=== PATIENT | male | born 1970 | race Caucasian/White ===

== ENCOUNTER 2019-10-31 20:46 | Emergency (ER) | payer SELFPAY ==
[2019-10-31 21:01] VITALS: BP 148/86; PULSE 86; RESP 18; TEMP 36.8; O2SAT 96
--- NOTE | 2019-10-31 21:26 | ED.SKABFB ---
HPI - Skin/Abscess/Foreign Bdy General Chief complaint: Skin/Abscess/Foreign Body Stated complaint: Rash Source: patient Mode of arrival: ambulatory Limitations: no limitations History of Present Illness HPI narrative: Pianful, pruritic rash, onset 5 days ago, on forearms, legs and scrotum. Oozing blisters from forearm rash. Trimmed some bushes the day before onset. Being outside in the heat makes it worse. Related Data Home Medications Medication Instructions Recorded Confirmed hydrocodone-acetaminophen 1 tablet PO HS PRN 10/31/19 10/31/19 Allergies Allergy/AdvReac Type Severity Reaction Status Date / Time Penicillins Allergy Unknown Verified 10/31/19 21:06 Review of Systems Constitutional: Constitutional: Denies chills and Denies fever(s) Eyes: Comments: no rash, itching or swelling. ENT: Comments: no rash, itching or swelling. Respiratory: Respiratory: Denies wheezing Gastrointestinal: Gastrointestinal: Denies nausea and Denies vomiting PMFSH Past Medical History Medical History (Updated 10/31/19 @ 21:39 by Kenyon Perez MD) Hypertension Social History Social History (Updated 10/31/19 @ 21:39 by Kenyon Perez MD) Smoking status: Current every day smoker Exam Const: General: no acute distress HENMT: Other: no rash Eyes: Conjunctivae: conjunctivae normal Neck: Neck: normal visual inspection Chest: Chest palpation & inspection: normal inspection of the chest : Male General Exam: Yes normal external exam Skin: Other: large dark brown patch on right forearm with dried vesicles. Small scattered similar appearing patches and linear markings on arms and legs. Course Vital Signs Vital signs: Vital Signs Temperature 36.8 C 10/31/19 21:01 Pulse Rate 86 10/31/19 21:01 Respiratory Rate 18 10/31/19 21:01 Blood Pressure 148/86 H 10/31/19 21:01 Pulse Oximetry 96 10/31/19 21:01 Temperature 36.8 C 10/31/19 21:01 Pulse Rate 86 10/31/19 21:01 Respiratory Rate 18 10/31/19 21:01 Blood Pressure 148/86 H 10/31/19 21:01 Pulse Oximetry 96 10/31/19 21:01 MDM - Skin/Abscess/Foreign Bdy MDM Narrative Medical decision making narrative: Rhus dermatitis by appearance and possible exposure the previous day. Because of scrotal and extremity involvement will tx with oral steroids. Discharge Plan Discharge Clinical Impression: Poison li dermatitis Patient Disposition: Home, Self-Care Condition: Stable Instructions: Poison Li (ED) Additional Instructions: follow up with PCP in 2 weeks if not resolved. Prescriptions: New prednisone 20 mg tablet 20 mg PO DAILY Qty: 32 RF: 0 No Action hydrocodone-acetaminophen 10-325 mg Tablet 1 tablet PO HS PRN (Reason: Pain) RF: 0 Follow-up/Referrals: UNKNOWN,DOCTOR [Primary Care Provider] - Time of Disposition: 21:34 Discharge Date/Time: 10/31/19 21:39
[2019-10-31] MEDS: predniSONE 20 MG TABLET 60 MG PO (21:32)
== END 2019-10-31 21:39 | disposition home or self-care (01) ==
PROVIDERS: Emergency Provider Family Medicine
DX: L23.7 Allergic contact dermatitis due to plants, except food (principal)
CPT/HCPCS: 99283; J7512

== ENCOUNTER 2020-03-29 20:29 | Emergency (ER) | payer MEDICAID, SELFPAY ==
--- NOTE | ~2020-03-29 | XR_ITS ---
XR chest 2V DATE: 03/29/2020 21:02 INDICATION: Chest pain, tightness. Shortness of breath. TECHNIQUE: 2 views, PA and lateral projections COMPARISON: None FINDINGS: Normal heart size. No hilar or mediastinal enlargement. No pulmonary infiltrate or consolid ation, pleural effusion or pulmonary vascular congestion or pneumothorax. IMPRESSION: No active cardiopulmonary disease Reviewed, dictated and finalized at location A. DING ADMIN
[2020-03-29 20:30] VITALS: BP 149/80; PULSE 85; RESP 20; TEMP 36.6; O2SAT 98
--- NOTE | 2020-03-29 20:36 | ED.CHESTPAIN ---
HPI - Chest Pain General Source: patient and RN notes reviewed Mode of arrival: ambulatory Limitations: no limitations History of Present Illness HPI narrative: patient states he had severe crushing chest pain at 3:30 a.m.. He had associated shortness of breath diaphoresis no nausea or vomiting no radiation at that time. Says it lasted for approximately 10-15 minutes. It went away and he went back to sleep. This evening approximately 1 hour prior to arrival he had another moderate episode with radiation to left arm and neck. [place] very similar to this morning. He has no history of coronary artery disease. He does have a strong family history. He also has been losing weight approximately 50 lb last month, he has been having some blurry vision, he has also been having polydipsia and polyuria. Also has a strong family history of diabetes. Accu-Chek on arrival is 436 MD complaint: chest heaviness Onset (ago): hour(s) (17) Timing of current episode: episodic Prior episodes: No Onset: during rest and awoke with symptoms Pain location: substernal Pain radiation: left arm and neck Severity: severe Pain scale (0-10): 10 Quality: tightness Relieving factors: rest Exacerbating factors: nothing Associated symptoms: diaphoresis and dyspnea Treatment prior to arrival: none Risk Factors Coronary artery disease risk factors: smoking history, hypertension and family history of CAD before age 50 Related Data Home Medications Medication Instructions Recorded Confirmed hydrocodone-acetaminophen 1 tablet PO HS PRN 10/31/19 03/29/20 metoprolol succinate 50 mg PO DAILY 03/29/20 03/29/20 Allergies Allergy/AdvReac Type Severity Reaction Status Date / Time Penicillins Allergy Unknown Verified 10/31/19 21:06 ON LICENSE OF [facility] Past Medical History Medical History Hypertension Surgical History Surgical History (Updated 03/29/20 @ 20:52 by Tyler Ruiz MD) H/O lumbosacral spine surgery History of meniscectomy of left knee Social History Social History (Updated 03/29/20 @ 20:53 by Tyler Ruiz MD) Smoking packs per day: 1.5 Smoking cigarettes per day: 30.0 Smoking status: Current every day smoker Tobacco type: cigarettes Alcohol intake: former Alcohol use details: quit 20years ago Substance use: never Exam Const: General: healthy appearing, no acute distress and alert Nutritional Appearance: well nourished and obese centrally obese Orientation/consciousness: patient oriented x3 HENMT: Head: normal to inspection Face and sinus: normal facial exam Eyes: Conjunctivae: conjunctivae normal Pupils: Equal, round and reactive pupils present EOM: EOMs intact bilaterally Neck: Neck: normal visual inspection Resp: Effort & Inspection: normal respiratory effort Auscultation: clear to auscultation bilaterally Cardio: Rate: regular rate Rhythm: regular rhythm GI: GI Palp: Yes Soft to palpation and No Tenderness to palpation present (GI) Auscultation: normal bowel sounds Back/Spine/Pelvis: Cervical Spine: cervical ROM normal Thoracic/Lumbar Spine: thoraco-lumbar ROM normal Skin: General skin exam: normal color Rashes: no rashes Neuro: General: patient oriented x3, moves all extremities and no focal motor deficits Speech: normal speech Gait exam (Neuro): Normal gait present Extrem: General: normal to inspection and no clubbing, cyanosis or edema Psych: Appearance: grossly normal and well kempt Mental Status: mental status grossly normal Affect: normal affect Attitude: cooperative Thought content: Yes Normal thought content present Course Vital Signs Vital signs: Vital Signs Temperature 36.6 C 03/29/20 20:30 Pulse Rate 85 03/29/20 20:30 Respiratory Rate 20 03/29/20 20:30 Blood Pressure 149/80 H 03/29/20 20:30 Pulse Oximetry 98 03/29/20 20:30 Temperature 36.6 C 03/29/20 20:30 Pulse Rate 72 03/29/20 23:46 Respiratory Rate 18
--- NOTE | 2020-03-29 20:41 | ECG_ITS ---
Measurements Intervals [place] Rate: 77 P: 68 MN: 180 QRS: 34 QRSD: 98 T: 57 QT: 354 QTc: 403 Interpretive Statements SINUS RHYTHM BASELINE ARTIFACT- I, III, AVL, V1-V2 NORMAL ECG Electronically Signed On 03-30-2020 6:32:06 [employer] [employer] by Larry De León D.O.
[2020-03-29 20:49] LABS: Glucose Point of Care 436 (65-105)
[2020-03-29] MEDS: ASPIRIN 81 MG CHEWABLE TABLET 324 MG PO (20:59)
[2020-03-29 21:09] LABS: Basophils Absolute Auto 0.08 K/mm3 (0.00-0.10); Basophils Percent Auto 0.8 % (0.0-1.0); Eosinophils Absolute Auto 0.36 K/mm3 (0.02-0.50); Eosinophils Percent Auto 3.5 % (1.0-6.0); Hematocrit 43.5 % (40.0-54.0); Hemoglobin 15.6 g/dL (14.0-18.0); Immature Granulocyte Absolute 0.03 K/mm3 (0.00-0.00); Immature Granulocyte Percent A 0.3 % (0.0-0.0); Lymphocytes Absolute Auto 3.27 K/mm3 (1.10-4.50); Lymphocytes Percent Auto 32.2 % (18.0-42.0); Mean Corpuscular HGB Conc 35.9 g/dL (32.0-36.0); Mean Corpuscular Volume 86.5 fL (78.0-102.0); Mean Platelet Volume 9.7 fl (8.7-11.0); Monocytes Absolute Auto 0.52 K/mm3 (0.10-0.90); Monocytes Percent Auto 5.1 % (2.0-11.0); Neutrophils Absolute Auto 5.9 K/mm3 (1.7-7.2); Neutrophils Percent Auto 58.1 % (50.0-70.0); Platelet Count Result 184 K/mm3 (150-420); Red Blood Count 5.03 M/mm3 (4.70-6.10); Red Cell Distribution Width 11.8 % (11.6-14.4); White Blood Count 10.2 K/mm3 (4.8-10.8)
[2020-03-29 21:20] LABS: D Dimer 0.39 mg/L (0.19-0.50)
[2020-03-29 21:24] LABS: Prothrombin Time 10.3 Seconds (9.50-12.10)
[2020-03-29 21:27] LABS: Alanine Aminotransferase 36 U/L (16-63); Albumin Level 3.8 g/dL (3.4-5.0); Alkaline Phosphatase 144 U/L (46-116); Anion Gap 8 mmol/L (8-16); Aspartate Amino Transferase < 10 U/L (15-37); Bilirubin,Total 0.3 mg/dL (0.00-1.00); Blood Urea Nitrogen 15 mg/dL (7-18); Calcium 8.4 mg/dL (8.5-10.1); Carbon Dioxide 27 mmol/L (21-32); Chloride 96 mmol/L (98-108); Estimated CRCL calculation 87 ml/min; Estimated Glomerular Filt Rate 57; Magnesium 1.8 mg/dL (1.8-2.4); Osmolality Calculated 294 mOsm/kg (285-295); Potassium 4.3 mmol/L (3.5-5.1); Sodium 131 mmol/L (136-145); Total Protein 7.7 g/dL (6.4-8.2)
[2020-03-29 21:28] LABS: Troponin I 5.1 ng/L (0.00-60.4)
[2020-03-29 21:29] LABS: Glucose 494 mg/dL (70-99)
[2020-03-29 21:34] LABS: Hemoglobin A1C 12.2 % (<5.7)
[2020-03-29 23:04] LABS: Glucose Point of Care 345 (65-105)
[2020-03-29 23:25] LABS: Troponin I 5.3 ng/L (0.00-60.4)
[2020-03-29 23:46] VITALS: BP 123/77; PULSE 72; RESP 18; O2SAT 97
== END 2020-03-29 23:55 | disposition home or self-care (01) ==
PROVIDERS: Emergency Provider Emergency Medicine
DX: R07.9 Chest pain, unspecified (principal); E11.9 Type 2 diabetes mellitus without complications
CPT/HCPCS: 36415; 71046; 80053; 83036; 83735; 84484; 85025; 85380; 85610; 93005; 99283; 99284; A9270; J1815

== ENCOUNTER 2021-07-03 17:43 | Emergency (ER) | payer OTHER, SELFPAY ==
--- NOTE | ~2021-07-03 | XR_ITS ---
EXAMINATION: XR chest 1V portable Exam Date/Time: 07/03/2021 18:48 CDT CLINICAL HISTORY: central chest pain today Comparison: 03/29/2020. RESULT: Lines, tubes, and devices: None. Lungs and pleura: Clear. Cardiomediastinal silhouette: Stable cardiomediastinal silhouette. Other: No acute osseous or upper abdominal finding. IMPRESSION: No acute cardiopulmonary process Reviewed, dictated and finalized at location K.
[2021-07-03 17:50] VITALS: BP 137/77; PULSE 64; RESP 16; TEMP 36.8; O2SAT 99
--- NOTE | 2021-07-03 18:12 | ECG_ITS ---
Measurements Intervals [place] Rate: 66 P: 70 AR: 176 QRS: 52 QRSD: 96 T: 60 QT: 378 QTc: 396 Interpretive Statements SINUS RHYTHM BASELINE ARTIFACT- I, II, III, AVR, AVL, AVF, V1 NORMAL ECG Electronically Signed On 07-03-2021 20:26:53 CDT by Larry De León D.O.
--- NOTE | 2021-07-03 18:12 | ED.GENADULT ---
HPI - General Adult General Chief complaint: Unspecified Stated complaint: ear to shoulder pain tingling in lt arm Time Seen by Provider: 07/03/21 18:12 Source: patient History of Present Illness HPI narrative: 51-year-old male, smoker with positive family history of coronary artery disease with negative stress test in 2001, hypertension, diabetes mellitus, dyslipidemia presented to the ER with -- left neck/ left shoulder /left arm pain since yesterday without any relation to exercise. He continues to have left neck and shoulder pain. -- 2-1/2 Oz ago he developed diffuse anterior chest pain along with left groin pain and left lower extremity pain. His chest pain has resolved but recurs with movement No fever. No cough or sputum production. No shortness of breath. Onset (ago): day(s) ( Started 1 day ago) Location: neck, left and upper extremity Severity: moderate Quality: aching Pain Consistency: constant Relieving factors: none Exacerbating factors: movement Associated symptoms: denies other symptoms Treatments prior to arrival: none Related Data Home Medications Medication Instructions Recorded Confirmed hydrocodone-acetaminophen 1 tablet PO HS PRN 10/31/19 07/03/21 metoprolol succinate 50 mg PO DAILY 03/29/20 07/03/21 famotidine 40 mg PO DAILY 07/03/21 07/03/21 gabapentin 300 mg PO DAILY 07/03/21 07/03/21 Allergies Allergy/AdvReac Type Severity Reaction Status Date / Time Penicillins Allergy Unknown Verified 07/03/21 18:06 Review of Systems Review of Systems: All systems reviewed & are unremarkable except as noted in HPI and below Constitutional: Constitutional: Reports as per HPI and Reports no additional constitutional complaints Eyes: Eyes: Reports as per HPI and Reports no additional eye complaints ENT: Reports system reviewed and no additional complaints, except as documented, Reports as per HPI and Reports Normal hearing present Cardiovascular: Cardiovascular: Reports as per HPI, Reports chest pain, Reports chest pain at rest and Reports chest pain with activity Respiratory: Respiratory: Reports as per HPI and Reports no additional respiratory complaints Gastrointestinal: Gastrointestinal: Reports as per HPI and Reports no additional gastrointestinal complaints Comments: left groin pain Genitourinary: Genitourinary: Reports no additional male genitourinary complaints and Reports as per HPI Musculoskeletal: Musculoskeletal: Reports no additional musculoskeletal complaints, Reports as per HPI and Reports back pain Integumentary/Breasts: Skin/Breast: Reports system reviewed and no additional complaints, except as docu and Reports as per HPI Neurologic: Reports system reviewed and no additional complaints, except as documented and Reports as per HPI Psychiatric: Psychiatric: Reports no additional psychiatric complaints and Reports as per HPI Endocrine: Endocrine: Reports no additional endocrine complaints and Reports as per HPI Hematologic/Lymphatic: Hematologic/Lymphatic: Reports no additional hematologic/lymphatic complaints and Reports as per HPI Allergic/Immunologic: Allergic/Immunologic: Reports no additional allergic/immunologic complaints and Reports as per HPI [facility] Past Medical History Medical History Hypertension Surgical History Surgical History H/O lumbosacral spine surgery History of meniscectomy of left knee Social History Social History Smoking packs per day: 1.5 Smoking cigarettes per day: 30.0 Smoking status: Current every day smoker Tobacco type: cigarettes Alcohol intake: former Alcohol use details: quit 20years ago Substance use: never Exam Const: General: cooperative, healthy appearing, comfortable and no acute distress HENMT: Head: normal to inspection, No palpable skull fract
[2021-07-03 18:51] LABS: Basophils Absolute Auto 0.08 K/mm3 (0.00-0.10); Basophils Percent Auto 0.9 % (0.0-1.0); Eosinophils Absolute Auto 0.44 K/mm3 (0.02-0.50); Eosinophils Percent Auto 5.2 % (1.0-6.0); Hematocrit 45.9 % (40.0-54.0); Hemoglobin 15.9 g/dL (14.0-18.0); Immature Granulocyte Absolute 0.01 K/mm3 (0.00-0.00); Immature Granulocyte Percent A 0.1 % (0.0-0.0); Lymphocytes Absolute Auto 2.53 K/mm3 (1.10-4.50); Lymphocytes Percent Auto 29.9 % (18.0-42.0); Mean Corpuscular HGB Conc 34.6 g/dL (32.0-36.0); Mean Corpuscular Hemoglobin 31.7 pg (27.0-31.0); Mean Corpuscular Volume 91.6 fL (78.0-102.0); Mean Platelet Volume 8.9 fl (8.7-11.0); Monocytes Absolute Auto 0.54 K/mm3 (0.10-0.90); Monocytes Percent Auto 6.4 % (2.0-11.0); Neutrophils Absolute Auto 4.9 K/mm3 (1.7-7.2); Neutrophils Percent Auto 57.5 % (50.0-70.0); Platelet Count Result 215 K/mm3 (150-420); Red Blood Count 5.01 M/mm3 (4.70-6.10); Red Cell Distribution Width 12.1 % (11.6-14.4); White Blood Count 8.5 K/mm3 (4.8-10.8)
[2021-07-03] MEDS: ASPIRIN 81 MG CHEWABLE TABLET 324 MG PO (19:08)
[2021-07-03 19:12] LABS: Partial Thromboplastin Time 28.7 SEC (23.90-30.70)
[2021-07-03 19:18] VITALS: BP 129/77; PULSE 72; RESP 20; O2SAT 100
[2021-07-03 19:19] LABS: Lactic Acid Reflex 0.8 mmol/L (0.4-2.0)
[2021-07-03 19:21] LABS: Alanine Aminotransferase 37 U/L (16-63); Albumin Level 3.7 g/dL (3.4-5.0); Alkaline Phosphatase 75 U/L (46-116); Anion Gap 5 mmol/L (8-16); Aspartate Amino Transferase 19 U/L (15-37); Bilirubin,Total 0.4 mg/dL (0.00-1.00); Blood Urea Nitrogen 21 mg/dL (7-18); Calcium 8.7 mg/dL (8.5-10.1); Carbon Dioxide 29 mmol/L (21-32); Chloride 106 mmol/L (98-108); Estimated CRCL calculation 83 ml/min; Estimated Glomerular Filt Rate 54; Glucose 121 mg/dL (70-99); Lipase 151 U/L (73-393); NT Pro B Type Natriuretic Pept 54 pg/mL (0-125); Osmolality Calculated 294 mOsm/kg (285-295); Potassium 4.1 mmol/L (3.5-5.1); Sodium 140 mmol/L (136-145); Total Protein 7.1 g/dL (6.4-8.2)
[2021-07-03 19:36] LABS: SARS-CoV-2 Ag Negative (Negative)
[2021-07-03 20:18] VITALS: BP 132/77; PULSE 80; RESP 18; TEMP 36.6; O2SAT 100
--- NOTE | 2021-07-03 21:24 | ECG_ITS ---
Measurements Intervals [place] Rate: 51 P: 52 OR: 189 QRS: 41 QRSD: 95 T: 47 QT: 404 QTc: 374 Interpretive Statements SINUS BRADYCARDIA BASELINE ARTIFACT- I, II, III, AVR, AVL, AVF BORDERLINE ECG Electronically Signed On 07-04-2021 6:14:00 CDT by Larry De León D.O.
[2021-07-03 21:51] LABS: Troponin I 58.8 ng/L (0.00-60.4)
[2021-07-03 22:07] VITALS: BP 130/76; PULSE 62; RESP 20; TEMP 36.1; O2SAT 99
== END 2021-07-03 22:10 | disposition home or self-care (01) ==
PROVIDERS: Emergency Provider Internal Medicine Critical Care Medicine; PCP Family Medicine
DX: M79.602 Pain in left arm (principal); F41.9 Anxiety disorder, unspecified; R07.9 Chest pain, unspecified
CPT/HCPCS: 36415; 71045; 80053; 83605; 83690; 83880; 84484; 85025; 85610; 85730; 87426; 93005; 99284; A9270; C9803

== ENCOUNTER 2022-06-11 21:40 | Emergency (ER) | payer OTHER, SELFPAY ==
[2022-06-11 21:48] VITALS: BP 157/78; PULSE 70; RESP 18; TEMP 36.6; O2SAT 99
--- NOTE | 2022-06-11 22:24 | ED.GENADULT ---
HPI - General Adult General Chief complaint: Eye Problems Stated complaint: Eye injury Time Seen by Provider: 06/11/22 22:10 History of Present Illness HPI narrative: The patient is a 52-year-old male who had a piece of sawdust enter his left eye 10 days ago, without wearing eye protection at the time. He rinsed it out. Subsequently, he has developed tearing and burning and intermittent redness of his conjunctiva since that time, worse over the last few days. He has tried [id number] saline drops without much relief. He has rinsed the left eye out again without much relief. He has this sharp pain associated with photophobia. Right eye is unremarkable. Vision is somewhat blurred from the left eye. No other complaints. No headache. No nausea or vomiting. No fevers. Related Data Home Medications Medication Instructions Recorded Confirmed hydrocodone 10 mg-acetaminophen 1 tablet PO HS PRN Pain 10/31/19 06/11/22 325 mg tablet metoprolol succinate 50 mg 50 mg PO DAILY 03/29/20 06/11/22 tablet,extended release 24 hr famotidine 40 mg tablet 40 mg PO DAILY 07/03/21 06/11/22 gabapentin 300 mg capsule 300 mg PO DAILY 07/03/21 06/11/22 aspirin 81 mg chewable tablet 81 mg PO DAILY 06/11/22 06/11/22 atorvastatin 80 mg tablet 80 mg PO DAILY 06/11/22 06/11/22 clopidogrel 75 mg tablet 75 mg PO DAILY 06/11/22 06/11/22 ezetimibe 10 mg tablet 10 mg PO DAILY 06/11/22 06/11/22 metformin 500 mg tablet 500 mg PO BID 06/11/22 06/11/22 nitroglycerin 0.4 mg sublingual 0.4 mg sublingual PRN PRN Chest 06/11/22 06/11/22 tablet Pain trazodone 150 mg tablet 150 mg PO HS 06/11/22 06/11/22 Allergies Allergy/AdvReac Type Severity Reaction Status Date / Time Penicillins Allergy Unknown Verified 07/03/21 18:06 Review of Systems Review of Systems: All systems reviewed & are unremarkable except as noted in HPI and below Constitutional: Constitutional: Reports as per HPI, Reports no additional constitutional complaints, Denies chills, Denies excessive sweating, Denies fatigue, Denies fever(s), Denies headache(s) and Denies weakness Eyes: Eyes: Reports as per HPI, Reports no additional eye complaints, Denies blind spots, Reports blurry vision (left eye only), Denies change in vision, Reports eye discharge (tearing, no purulent or mucous discharge), Reports irritation (left eye), Denies itchy eyes, Reports eye pain (left eye), Denies seeing flashes and Reports photophobia (left eye) ENT: Reports system reviewed and no additional complaints, except as documented, Reports as per HPI, Denies dysphagia, Denies vertigo, Denies dizziness, Denies headache(s), Denies lip swelling, Denies nasal congestion, Denies sore throat, Denies throat swelling and Denies tongue swelling Cardiovascular: Cardiovascular: Reports as per HPI, Reports no additional cardiovascular complaints, Denies chest pain, Denies syncope, Denies rapid heart rate and Denies dyspnea Respiratory: Respiratory: Reports as per HPI, Reports no additional respiratory complaints, Denies chest congestion, Denies cough, Denies dyspnea and Denies wheezing Gastrointestinal: Gastrointestinal: Reports as per HPI, Reports no additional gastrointestinal complaints, Denies abdominal pain, Denies constipation, Denies dysphagia, Denies diarrhea, Denies nausea and Denies vomiting Genitourinary: Genitourinary: Reports as per HPI, Denies hematuria, Denies oliguria, Denies dysuria, Denies urinary frequency, Denies urinary incontinence and Denies urinary urgency Musculoskeletal: Musculoskeletal: Reports no additional musculoskeletal complaints, Denies back pain, Denies myalgias, Denies arthralgias, Denies joint swelling and Denies numbness Integumentary/Breasts: Skin/Breast: Reports system reviewed and no additional complaints, except as docu, Denies pruritus, Denies erythema, Denies rash and Denies skin ulcer Neurologic: Reports system reviewed and no additional complaints, except as documented, Reports as per HPI, D
[2022-06-11] MEDS: FLUORESCEIN SOD 1 MG/STRIP EACH EYE (22:25)
[2022-06-11] MEDS: TOBRAMYCIN/DEXAMETHASONE OP 2.5 ML BTL 2 DROP LEFT EYE (22:27)
[2022-06-11] MEDS: SODIUM CHLORIDE 0.9% IV 500 ML BAG 1000 ML IRRIGATION (22:57)
[2022-06-11 23:09] VITALS: BP 145/74; PULSE 88; RESP 18; TEMP 36.6; O2SAT 94
== END 2022-06-11 23:11 | disposition home or self-care (01) ==
PROVIDERS: Emergency Provider Emergency Medicine; PCP Family Medicine
DX: T15.02XA Foreign body in cornea, left eye, initial encounter (principal); I10 Essential (primary) hypertension; Z79.82 Long term (current) use of aspirin; Z79.891 Long term (current) use of opiate analgesic; X58.XXXA Exposure to other specified factors, initial encounter
CPT/HCPCS: 99283; A9270; J7030; J7040

== ENCOUNTER 2022-12-18 22:23 | Emergency (ER) | payer OTHER, SELFPAY ==
--- NOTE | ~2022-12-18 | XR_ITS ---
EXAMINATION: XR shoulder RT min 2V DATE: 12/18/2022 22:55 INDICATION: Fall. TECHNIQUE: 4 views of right shoulder were obtained. COMPARISON: None. FINDINGS: Bone alignment is normal. No fracture. Joint is normal. There is severe acromioclavicular j oint osteoarthritis. IMPRESSION: 1. Severe right acromioclavicular joint osteoarthritis. Reviewed, dictated and finalized at location E.
--- NOTE | ~2022-12-18 | XR_ITS ---
EXAMINATION: XR ribs RT 2V DATE: 12/18/2022 22:55 INDICATION: Fall. TECHNIQUE: 2 views of the right ribs on 4 radiographs were obtained. COMPARISON: Chest single view 07/03/2021 FINDINGS: There is no right-sided pneumonia, pleural effusion, or pneumothorax. The heart size is nor mal. IMPRESSION: 1. No rib fracture. Reviewed, dictated and finalized at location E. IMPRESSION: 1. No rib fracture.
[2022-12-18 22:26] VITALS: BP 170/67; PULSE 67; RESP 16; TEMP 36.1; O2SAT 98
--- NOTE | 2022-12-18 22:29 | ED.FALL ---
HPI - Fall General Chief Complaint: Fall Stated Complaint: fall Time Seen by Provider: 12/18/22 22:28 Source: patient and RN notes reviewed Mode of arrival: ambulatory Limitations: no limitations History of Present Illness HPI Narrative: Patient states he fell yesterday onto his right side from his right hip up to his right shoulder. Today's right ribs hurt his right shoulder hurts. He complains of some mild neck pain but he did not fall onto his neck. His employer said he should be checked out. MD complaint: fall Onset (ago): day(s) (1) Fall from: standing Fall witnessed: yes, by bystander Place fall occurred: work Loss of consciousness: none Prolonged down time: no Symptoms prior to fall: none Context: tripped/slipped Location of injury: chest Location of injury - extremities: Right: shoulder Severity: moderate Quality: dull and aching Associated symptoms (after fall): chest pain (ribs) Related Data Home Medications Medication Instructions Recorded Confirmed hydrocodone 10 mg-acetaminophen 1 tablet PO HS PRN Pain 10/31/19 12/18/22 325 mg tablet metoprolol succinate 50 mg 50 mg PO DAILY 03/29/20 12/18/22 tablet,extended release 24 hr famotidine 40 mg tablet 40 mg PO DAILY 07/03/21 12/18/22 gabapentin 300 mg capsule 300 mg PO DAILY 07/03/21 12/18/22 aspirin 81 mg chewable tablet 81 mg PO DAILY 06/11/22 12/18/22 atorvastatin 80 mg tablet 80 mg PO DAILY 06/11/22 12/18/22 clopidogrel 75 mg tablet 75 mg PO DAILY 06/11/22 12/18/22 ezetimibe 10 mg tablet 10 mg PO DAILY 06/11/22 12/18/22 metformin 500 mg tablet 500 mg PO BID 06/11/22 12/18/22 nitroglycerin 0.4 mg sublingual 0.4 mg sublingual PRN PRN Chest 06/11/22 12/18/22 tablet Pain trazodone 150 mg tablet 150 mg PO HS 06/11/22 12/18/22 Allergies Allergy/AdvReac Type Severity Reaction Status Date / Time Penicillins Allergy Unknown Verified 12/18/22 22:25 Review of Systems Review of Systems: All systems reviewed & are unremarkable except as noted in HPI and below PMFSH Past Medical History Medical History Hypertension Surgical History Surgical History H/O lumbosacral spine surgery History of meniscectomy of left knee Social History Social History Smoking packs per day: 1.5 Smoking cigarettes per day: 30.0 Smoking status: Current every day smoker Tobacco type: cigarettes Alcohol intake: former Alcohol use details: quit 20years ago Substance use: never Exam Const: General: healthy appearing, no acute distress and alert Nutritional Appearance: well nourished and obese Orientation/consciousness: patient oriented x3 Limitations: no limitations HENMT: Head: normal to inspection Ears: external ears normal Face/Nose/Sinus: Normal external nose present Face and sinus: normal facial exam Mouth: Yes moist mucous membranes Eyes: Conjunctivae: conjunctivae normal Pupils: Equal, round and reactive pupils present EOM: EOMs intact bilaterally Neck: Neck: normal visual inspection Chest: Chest palpation & inspection: tenderness rib right anterior-axillary line involving the 5th rib, involving the 6th rib and involving the 7th rib Resp: Effort & Inspection: normal respiratory effort Auscultation: clear to auscultation bilaterally Cardio: Rate: regular rate Rhythm: regular rhythm GI: GI Palp: Yes Soft to palpation and No Tenderness to palpation present (GI) Auscultation: normal bowel sounds Back/Spine/Pelvis: Cervical Spine: cervical ROM normal Thoracic/Lumbar Spine: thoraco-lumbar ROM normal Skin: General skin exam: normal color Rashes: no rashes Neuro: General: patient oriented x3, moves all extremities, no focal motor deficits and CN's II-XI intact bilaterally Speech: normal speech Gait exam (Neuro): Normal gait present Extrem: General: normal exam except as noted and
[2022-12-18 23:16] VITALS: BP 170/67; PULSE 67; RESP 16; TEMP 36.1; O2SAT 100
== END 2022-12-18 23:17 | disposition home or self-care (01) ==
PROVIDERS: Emergency Provider Emergency Medicine; PCP Family Medicine
DX: S20.211A Contusion of right front wall of thorax, initial encounter (principal); S40.011A Contusion of right shoulder, initial encounter; I10 Essential (primary) hypertension; F17.210 Nicotine dependence, cigarettes, uncomplicated; Z79.891 Long term (current) use of opiate analgesic; Z79.899 Other long term (current) drug therapy; W01.0XXA Fall on same level from slipping, tripping and stumbling without subsequent striking against object, initial encounter; Y99.0 Civilian activity done for income or pay
CPT/HCPCS: 71100; 73030; 99284